=== PATIENT | female | born 1980 | race African-American/Black ===

== ENCOUNTER 2017-11-30 09:23 | Emergency (ER) | payer OTHER ==
[~2017-11-30] VITALS: Ht 149.9 cm; Wt 54.4 kg
[2017-11-30] MEDS ORDERED: ZYPREXA 5 MG TAB5 M1 PO (10:18)
[2017-11-30] MEDS ORDERED: NORVASC10 MG PO (10:18)
[2017-11-30] MEDS ORDERED: KEPPRA 500 MG500 M1 PO (10:18)
[2017-11-30] MEDS ORDERED: PREDNISONE 10 M10 MG PO (10:19)
[2017-11-30] MEDS ORDERED: CELEXA40 MG PO (10:20)
[2017-11-30 10:42] LABS: ABSOLUTE NEUTROPHILS 4.6 thou/uL (1.4-8.2); BASOPHILS 1.1 % (0.0-2.0); EOSINOPHILS 0.1 % (0.0-3.0); HEMATOCRIT 29.8 % (37.0-47.0); HEMOGLOBIN 9.7 gm/dL (12.0-15.0); LYMPHOCYTES 6.7 % (24.0-44.0); MCH 26.6 pg (26.0-34.0); MCHC 32.7 g/dL (28.0-37.0); MCV 81.4 fL (80.0-100.0); MONOCYTES 8.6 % (1.0-8.0); PLATELET COUNT 174 thou/uL (150-400); POLYS 83.5 % (36.0-66.0); RBC 3.66 mil/uL (4.20-5.00); RDW 20.5 % (10.5-14.5); WBC 5.5 thou/uL (4.0-11.0)
[2017-11-30 10:57] LABS: CALCIUM 9.9 mg/dL (8.5-10.1); CREATININE 0.8 mg/dL (0.6-1.0); POTASSIUM 3.7 mmol/L (3.5-5.1)
[2017-11-30 11:00] LABS: ALBUMIN 3.9 g/dL (3.4-5.0); DIRECT BILIRUBIN 0.2 mg/dL (<0.1-0.3); TOTAL BILIRUBIN 0.9 mg/dL (<0.1-1.0); TOTAL PROTEIN 9.1 g/dL (6.4-8.2)
[2017-11-30] MEDS ORDERED: ZOFRAN ODT4 MG PO (11:50)
== END 2017-11-30 12:59 | disposition home or self-care (01) ==
LOC: ER 09:23
PROVIDERS: Emergency Medicine
DX: R11.2 Nausea with vomiting, unspecified (principal); I10 Essential (primary) hypertension; F32.9 Major depressive disorder, single episode, unspecified; F41.9 Anxiety disorder, unspecified; G40.909 Epilepsy, unspecified, not intractable, without status epilepticus; Z88.1 Allergy status to other antibiotic agents